=== PATIENT | male | born 1985 | race Hispanic/Latino ===

== ENCOUNTER → 2017-09-27 | Emergency (ER) | payer BC, OTHER ==
[~2017-09-27] MED LIST: Acetaminophen 500 MG TAB ONE; Adacel (T-DAP) 0.5 ML VIAL ONE; Bacitracin Zinc 1 Packet ONE; Ibuprofen 800 MG TAB ONE; Ondansetron HCl/PF 4 MG/2 ML Vial ONE
--- NOTE | 2017-09-27 12:37 | RAD ---
RIGHT INDEX FINGER TWO VIEWS: History: Injury to right index finger. FINDINGS: No evidence of fracture or dislocation seen on this two view exam. No significant soft tissue swellin g apparent. IMPRESSION: No acute findings. POS: [facility]
== END ==
LOC: NAV ERS 11:16
DX: S60.021A Contusion of right index finger without damage to nail, initial encounter (principal); Y99.0 Civilian activity done for income or pay
CPT/HCPCS: 90471; 90715; 99000; J2270; J2405

== ENCOUNTER 2021-10-18 13:02 | Emergency (ER) | payer BC ==
[2021-10-19 14:09] LABS: SARS-CoV-2 PCR by NAA DETECTED (NotDetected)
== END 2021-10-18 14:05 | disposition home or self-care (01) ==
LOC: NAV ERS 13:02
DX: U07.1 COVID-19 (principal)
CPT/HCPCS: 99283; U0003; U0005